=== PATIENT | female | born 1990 | race Caucasian/White ===

== ENCOUNTER 2019-05-26 16:14 | Emergency (ER) | payer SELFPAY ==
[~2019-05-26] VITALS: Ht 170.2 cm; Wt 87.2 kg
[~2019-05-26 16:14] MED LIST: AMOXICILLIN500 MG OR; AMOXICILLIN500 MG PO; AMOXIL500 MG OR; CLARITIN-D1 TA1 OR; DARVOCET N-100100 - OR; NO HOME MEDS; PENICILLN VK500 MG OR; PRENATAL1 TAB OR; TRAMADOL HCL50 MG OR
[2019-05-26] MEDS ORDERED: AMOXICILLIN875 MG PO (16:58)
[2019-05-26] MEDS ORDERED: MEDDOSEPAK PO (16:58)
[2019-05-26 17:06] VITALS: BP 130/79
== END 2019-05-26 17:05 | disposition home or self-care (01) | DRG 153 ==
LOC: ED 16:14
DX: J02.9 Acute pharyngitis, unspecified (principal); J06.9 Acute upper respiratory infection, unspecified

== ENCOUNTER 2019-10-09 | Emergency (ER) | payer SELFPAY ==
[~2019-10-09] MED LIST changes: +AMOXICILLIN875 MG PO; +MEDDOSEPAK PO
== END 2019-10-09 21:27 | disposition home or self-care (01) | DRG 153 ==
DX: J02.9 Acute pharyngitis, unspecified (principal)

== ENCOUNTER 2021-01-23 07:37 | Emergency (ER) | payer SELFPAY ==
[~2021-01-23] VITALS: Ht 170.2 cm; Wt 93.0 kg
[2021-01-23 08:20] LABS: IMMATURE GRANULOCYTES 0.2 % (0.0-5.0); MEAN CELL VOLUME 90.3 fL CALC (80.0-100.0); MEAN CORPUSCULAR HGB 30.9 pG CALC (26.0-32.0); MEAN CORPUSCULAR HGB CONC 34.2 g/dL CAL (32.0-36.0); NEUT# 3.71 thou/uL (2.00-7.15); RED BLOOD COUNT 4.66 mill/uL (4.20-5.60); RED CELL DISTRI WIDTH 11.9 % (11.5-15.5)
[2021-01-23 08:37] LABS: URINE BILIRUBIN - DIPSTICK NEGATIVE (NEGATIVE); URINE BLOOD DIPSTICK LARGE (NEGATIVE); URINE COLOR YELLOW; URINE GLUCOSE - DIPSTICK NEGATIVE (NEGATIVE); URINE KETONE NEGATIVE (NEGATIVE); URINE LEUK ESTERASE TRACE (NEGATIVE); URINE PROTEIN - DIPSTICK 30 mg/dL (NEG-TRACE); URINE SPECIFIC GRAVITY >=1.030; URINE UROBILINOGEN - DIPSTICK 0.2 E.U./dL (0.2)
[2021-01-23 08:42] LABS: URINE BACTERIA MODERATE hpf; URINE EPITHELIAL CELLS MODERATE EPI/hpf (0-FEW); URINE MUCUS MODERATE hpf (NONE-FEW); URINE NITRITE - DIPSTICK NEGATIVE (Negative); URINE RBC 50-100 RBC/hpf (0-5)
[2021-01-23 08:45] LABS: BILIRUBIN, TOTAL 0.5 mg/dL (0.0-1.4); BUN 13 mg/dL (7-17); BUN/CREATININE RATIO 15 (12-20 (CALC)); CHLORIDE 103 mmol/l (95-108); CREATININE 0.8 mg/dL (0.5-1.0); GFR > 60 ML/MIN (>=60 (CALC)); GFR FOR AFR.AMER. > 60 ML/MIN (>=60 (CALC)); SGOT/AST 26 u/l (14-36); SODIUM 138 mmol/l (137-146); TOTAL PROTEIN 7.9 g/dL (6.3-8.2)
[2021-01-23 08:46] LABS: ALBUMIN 4.4 g/dL (3.2-5.0); ALKALINE PHOSPHATASE 66 u/l (38-126); ANION GAP 14 (6-22 (CALC)); CARBON DIOXIDE 25 mmol/l (22-30); HEMATOCRIT 42.1 % (37.0-47.0); HEMOGLOBIN 14.4 g/dl (12.0-16.0)
[2021-01-23 09:25] LABS: URINE BILIRUBIN - DIPSTICK NEGATIVE (NEGATIVE); URINE BLOOD DIPSTICK LARGE (NEGATIVE); URINE COLOR YELLOW; URINE GLUCOSE - DIPSTICK NEGATIVE (NEGATIVE); URINE KETONE NEGATIVE (NEGATIVE); URINE LEUK ESTERASE TRACE (NEGATIVE); URINE PROTEIN - DIPSTICK NEGATIVE (NEG-TRACE); URINE UROBILINOGEN - DIPSTICK 0.2 E.U./dL (0.2)
[2021-01-23 09:27] LABS: URINE NITRITE - DIPSTICK NEGATIVE (Negative)
[2021-01-23 11:24] VITALS: BP 131/80
== END 2021-01-23 11:34 | disposition home or self-care (01) | DRG 392 ==
LOC: ED 07:37
PROVIDERS: Emergency Medicine
DX: R10.11 Right upper quadrant pain (principal); R10.31 Right lower quadrant pain; R10.33 Periumbilical pain; N83.201 Unspecified ovarian cyst, right side
CPT/HCPCS: Q9967

== ENCOUNTER 2022-04-07 16:24 | Emergency (ER) | payer SELFPAY ==
[~2022-04-07] VITALS: Ht 170.2 cm; Wt 92.9 kg
[2022-04-07 16:30] VITALS: BP 152/109
[2022-04-07 16:36] VITALS: BP 152/109
[2022-04-07] MEDS ORDERED: NAPROXEN500 MG PO (17:46)
== END 2022-04-07 17:55 | disposition home or self-care (01) | DRG 563 ==
LOC: ED 16:24
DX: S93.402A Sprain of unspecified ligament of left ankle, initial encounter (principal); W01.198A Fall on same level from slipping, tripping and stumbling with subsequent striking against other object, initial encounter; Y92.512 Supermarket, store or market as the place of occurrence of the external cause